=== PATIENT | female | born 1965 | race Caucasian/White ===

== ENCOUNTER 2019-01-08 10:41 | Day surgery (SDC) | payer BC ==
[~2019-01-08 10:41] MED LIST: Midazolam 1 MG/ML 2 ML SDV ONE; Propofol 200 MG/20 ML SDV ONE
[2019-01-08] MEDS ORDERED: Sodium Chloride 0.9% 10 ML Syringe FLUSH PRN (10:45)
[2019-01-08] MEDS ORDERED: Lactated Ringers 1,000 ML IV SCH (10:45)
[2019-01-08] MEDS ORDERED: Propofol 200 MG/20 ML SDV ONE (11:00)
--- NOTE | 2019-01-08 11:40 | PCM.PN ---
- General Info Date of Service: 01/08/19 - Review of Systems Systems Review Comment:: 53-year-old female referred by Dr. Shereen Huynh for colonoscopy. She has a family history of colon cancer in both parents. It is been 5 years since her last colonoscopy. She is medically stable to proceed today. Her recent history and physical is reviewed and no significant changes are noted. I discussed the proposed colonoscopy with the patient. She agrees to proceed accepting risks. - Patient Data Med Orders - Current: Current Medications Lactated Ringer's (Ringers, Lactated) 1,000 mls @ 50 mls/hr IV ASDIRECTED KORY Sodium Chloride (Saline Flush) 10 ml FLUSH Q8HR PRN PRN Reason: keep vein open Discontinued Medications Midazolam HCl (Versed 1 Mg/Ml) Confirm Administered Dose 2 mg .ROUTE .STK-MED ONE Stop: 01/08/19 10:26 Propofol (Diprivan 20 Ml) Confirm Administered Dose 200 mg .ROUTE .STK-MED ONE Stop: 01/08/19 10:26 - Problem List Review Problem List Initiated/Reviewed/Updated: Yes - My Orders Last 24 Hours: My Active Orders 01/08/19 10:45 Peripheral IV Care [RC] . DIRECTED Vital Signs [RC] PER UNIT ROUTINE Lactated Ringers [Ringers, Lactated] 1,000 ml IV ASDIRECTED Sodium Chloride 0.9% [Saline Flush] 10 ml FLUSH Q8HR PRN Peripheral IV Insertion Adult [OM.PC] Routine 01/08/19 11:30 Patient to Empty Bladder [RC] ASDIRECTED 01/08/19 12:00 Verify Patient Consent Obtain [RC] ASDIRECTED 01/08/19 Breakfast Nothing Per Oral Diet [DIET] - Assessment Assessment:: Family history of colon cancer - Plan Plan:: Colonoscopy
[2019-01-08] MEDS ORDERED: Midazolam 1 MG/ML 2 ML SDV IV ONE (11:41)
[2019-01-08] MEDS ORDERED: Propofol 200 MG/20 ML SDV IV ONE (11:41)
--- NOTE | 2019-01-08 12:24 | PCM.OPNOTE ---
- General Post-Op/Procedure Note Date of Surgery/Procedure: 01/08/19 Operative Procedure(s): Colonoscopy Findings: Mild Sigmoid Diverticulosis Moderate External Hemorrhoids Pre Op Diagnosis: Family History of Colon Cancer Post-Op Diagnosis: Diverticulosis. Hemorrhoids Anesthesia Technique: MAC Primary Surgeon: Abram Fuentes Pathology: none EBL in mLs: 0 Complications: None Condition: Good
--- NOTE | 2019-01-08 18:17 | OR ---
DATE OF SURGERY: 01/08/2019 SURGEON: Abram Fuentes MD PREOPERATIVE DIAGNOSIS: Family history of colon cancer. POSTOPERATIVE DIAGNOSIS: Sigmoid diverticulosis and hemorrhoids. OPERATION PERFORMED: Colonoscopy. INDICATIONS FOR SURGERY: This 53-year-old female comes today for screening colonoscopy. She has a known family history of colon cancer in both parents. FINDINGS: No polyps were seen on today's exam. The patient does have a mild to moderate degree of sigmoid diverticulosis. This does not appear to be acutely inflamed or otherwise complicated. She also has small to moderate sized external hemorrhoids. The colon and terminal ileum otherwise appear normal. DESCRIPTION OF PROCEDURE: The patient was taken to the operating room. She was given intravenous sedation and with her in the left lateral decubitus position, digital rectal exam was performed showing no rectal masses. The Olympus colonoscope was inserted into the rectum. Retroflexed examination of the rectal canal was then performed. The scope was then carefully advanced under direct visualization through the entire length of the colon until the cecum was reached. Cecal acquisition was confirmed by noting the normal internal cecal anatomy including the appendiceal orifice and the ileocecal valve. The light was also noted to transilluminate the abdominal wall in the right lower quadrant. The ileocecal valve was cannulated and the terminal ileum examined and it also appeared normal. The scope was then slowly withdrawn sequentially re-examining the colonic segments until the entire colon and rectum had been fully examined. The scope was removed, and the patient was taken from the operating room in satisfactory condition. ESTIMATED BLOOD LOSS: Zero. COMPLICATIONS: None. PROGNOSIS: Good. /[id number]/MODL
== END 2019-01-08 14:00 | disposition home or self-care (01) ==
LOC: KA.SDS 10:41
PROVIDERS: ATTEND Surgery
DX: Z12.11 Encounter for screening for malignant neoplasm of colon (principal); K57.30 Diverticulosis of large intestine without perforation or abscess without bleeding; K64.4 Residual hemorrhoidal skin tags; F41.8 Other specified anxiety disorders; E66.9 Obesity, unspecified; Z68.35 Body mass index [BMI] 35.0-35.9, adult; Z80.0 Family history of malignant neoplasm of digestive organs; Z79.1 Long term (current) use of non-steroidal anti-inflammatories (NSAID); Z79.899 Other long term (current) drug therapy
CPT/HCPCS: J2250; J2704

== ENCOUNTER 2021-01-05 01:52 | Emergency (ER) | payer BC ==
[2021-01-05] MEDS: Sodium Chloride 0.9% 10 ML Syringe FLUSH PRN (02:15)
[2021-01-05] MEDS: Ketorolac 30 MG/ML SDV IVPUSH ONE (02:23)
--- NOTE | 2021-01-05 02:25 | EDM.PDOC ---
ED HPI GENERAL MEDICAL PROBLEM - General Chief Complaint: General Stated Complaint: Left lower back pain Time Seen by Provider: 01/05/21 02:10 Source of Information: Reports: Patient - History of Present Illness INITIAL COMMENTS - FREE TEXT/NARRATIVE: Bekah, 55-year-old female, presents emergency department with sudden onset and extreme left flank pain. She states is all started roughly at 0100 hrs. and has had 3 attempts at urination since then with minimal output. Denies fever chills, denies any urinary symptoms yesterday while at work working in the evening prior to going to bed. She had 1 event similar to this with extreme acuity while at work in the clinic that turned to be a UTI at that time. She has been maintaining good hydration and no activity that would increase risk of either stone nor UTI. 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 Medication(s) (hydrocodone) Left Lower Back Pain Score (Numeric/FACES): 10 - Related Data Allergies Allergy/AdvReac Type Severity Reaction Status Date / Time No Known Drug Allergies Allergy Other Verified 01/06/19 14:57 Home Meds: Home Meds Aspirin [Adult Low Dose Aspirin EC] 81 mg PO DAILY 01/06/19 [History] Multivitamin [Multi-Day Vitamins] 1 each PO DAILY 01/06/19 [History] Naproxen Sodium [Aleve] 220 mg PO QAM 01/06/19 [History] Cetirizine [ZyrTEC] 10 mg PO DAILY PRN 01/05/21 [History] Past Medical History Gastrointestinal History: Reports: Hemorrhoids Genitourinary History: Reports: Other (See Below) (UTI) BROACHER History: Reports: , Other (See Below) Other BROACHER History: hysteremctomy, Psychiatric History: Reports: Anxiety, Depression Endocrine/Metabolic History: Reports: Obesity/BMI 30+ Dermatologic History: Reports: Melanoma - Infectious Disease History Infectious Disease History: Reports: Chicken Pox, Mumps, Shingles - Past Surgical History GI Surgical History: Reports: Cholecystectomy, Colonoscopy Musculoskeletal Surgical History: Reports: Other (See Below) Other Musculoskeletal Surgeries/Procedures:: shoulder surgery Social & Family History - Family History Family Medical History: No Pertinent Family History ED ROS GENERAL - Review of Systems Review Of Systems: Comprehensive ROS is negative, except as noted in HPI. ED EXAM, GENERAL - Physical Exam Exam: See Below Free Text/Narrative:: Alert, oriented and severe pain distress. Prominent pain to the left flank region. HEENT negative discharge or deformity she states she feels slightly dry and thirsty. Neck is soft supple no lymphadenopathy. Thorax is clear I do not appreciate wheezes nor crackles. Cardiac is regular no appreciated murmur. Abdomen is soft with bowel sounds there is no specific point of tenderness, no tenderness on urinary bladder. There is left flank discomfort to palpation and any jarring motion. There is +1 edema of the lower extremities she moves her legs about with no restriction as well as to the upper extremities with no restrictions. Skin is warm and dry. She can find mild comfort in her positioning with pain changing causing motion. Course - Vital Signs Last Recorded V/S: Last Vital Signs Temp 95.6 F L 01/05/21 01:55 Pulse 56 L 01/05/21 03:46 Resp 22 H 01/05/21 01:55 BP 114/70 01/05/21 03:46 Pulse Ox 89 L 01/05/21 03:46 - Orders/Labs/Meds Orders: Active Orders 24 hr Category Date Time Status Peripheral IV Care [RC] . DIRECTED Care 01/05/21 02:08 Active Abdomen Pelvis wo Cont [CT] Stat Exams 01/05/21 02:27 Ordered Sodium Chloride 0.9% [Saline Flush] Med 01/05/21 02:08 Active 10 ml FLUSH Q8HR PRN Peripheral IV Insertion Adult [OM.PC] Routine Oth 01/05/21 02:08 Ordered Medication Orders Sodium Chloride (Sodium Chloride 0.9% 10 Ml Syringe) 10 ml FLUSH Q8HR PRN PRN Reason: keep vein open Last Admin: 01/05/21 02:15 Dose: 10 ml Documented by: SYMONE Labs: Laboratory Tests 01/05/21 01/05/21 01/05/21 Range/Units 02:05 02:05 02:05 WBC 9.04 (5.00-10.00) 10^3/uL RBC 4.67 (3.80-5.50) 10^6/uL Hgb 13.4 (12.0-16.0) g/dL Hct 39.3 (37.0-47.0) % MCV 84.2 (82.0-92.0) fL MCH 28.7 (27.0-31.0) pg MCHC 34.1 (32.0-36.0) g/dL RDW 14.1 (11.5-14.5) % Plt Count 238 (150-400) 10^3/uL MPV 9.5 (7.4-10.4) fL Immature Gran % (Auto) 0.1 (0.0-5.0) % Neut % (Auto) 50.2 (50.0-70.0) % Lymph % (Auto) 38.9 (20.0-40.0) % [place]berry % (Auto) 9.1 H (2.0-8.0) % Eos % (Auto) 1.4 (1.0-3.0) % Baso % (Auto) 0.3 (0.0-1.0) % Neut # (Auto) 4.53 (2.50-7.00) 10^3/uL Lymph # (Auto) 3.52 (1.00-4.00) 10^3/uL Newberry # (Auto) 0.82 H (0.10-0.80) 10^3/uL Eos # (Auto) 0.13 (0.10-0.30) 10^3/uL Baso # (Auto) 0.03 (0.00-0.10) 10^3/uL Immature Gran # (Auto) 0.01 (0.00-0.50) 10^3/uL Sodium 141 (136-145) mmol/L Potassium 3.8 (3.5-5.1) mmol/L Chloride 105 (98-107) mmol/L Carbon Dioxide 25.5 (21.0-32.0) mmol/L Anion Gap 14.3 (5-15) mmol/L BUN 26 H (7-18) mg/dL Creatinine 0.78 (0.51-1.17) mg/dL Est Cr Clr Drug Dosing TNP Estimated GFR (MDRD) > 60 mL/min Glucose 132 (70-140) mg/dL Calcium 8.7 (8.7-10.3) mg/dL Total Bilirubin 0.3 (0.2-1.0) mg/dL AST 11 L (15-37) U/L ALT 31 (14-63) U/L Alkaline Phosphatase 61 (46-116) U/L Total Protein 7.3 (6.4-8.2) g/dL Albumin 3.63 (3.40-5.00) g/dL Specimen Type Urinvoid Urine Color Light yellow (YELLOW) Urine Appearance Clear (CLEAR) Urine pH 5.5 (5.0-9.0) Ur Specific [place] >= 1.030 (1.005-1.030) Urine Protein Negative (NEGATIVE) mg/dL Urine Glucose (UA) Negative (NEGATIVE) mg/dL Urine Ketones Negative (NEGATIVE) mg/dL Urine Occult Blood Moderate H (NEGATIVE) Urine Nitrite Negative (NEGATIVE) Urine Bilirubin Negative (NEGATIVE) Urine Urobilinogen 0.2 (0.2-1.0) E.U./dL Ur Leukocyte Esterase Negative (NEGATIVE) Urine RBC >100 H (0-5) /HPF Urine WBC 5-10 H (0-5) /HPF Ur Epithelial Cells Occasional /LPF Urine Bacteria Occasional (NONE TO FEW) /HPF Urine Mucus Many H (NEGATIVE) /LPF Meds: Medications Generic Name Dose Route Start Last Admin Trade Name Freq PRN Reason Stop Dose Admin Sodium Chloride 10 ml 01/05/21 02:08 01/05/21 02:15 Sodium Chloride 0.9% 10 Ml Syringe FLUSH 10 ml Q8HR PRN Administration keep vein open Discontinued Medications Generic Name Dose Route Start Last Admin Trade Name Freq PRN Reason Stop Dose Admin Hydrocodone Bitart/Acetaminophen 1 tab 01/05/21 04:22 Acetaminophen/Hydrocodone 325-5 Mg Tab PO 01/05/21 04:23 ONETIME ONE Hydromorphone HCl 1 mg 01/05/21 03:14 01/05/21 03:18 Hydromorphone 1 Mg/Ml Syringe IVPUSH 01/05/21 03:15 1 mg ONETIME ONE Administration Sodium Chloride 1,000 mls @ 999 mls/hr 01/05/21 02:08 01/05/21 02:30 Normal Saline IV 01/05/21 03:08 999 mls/hr .BOLUS ONE Administration Ketorolac Tromethamine 30 mg 01/05/21 02:09 01/05/21 02:23 Ketorolac 30 Mg/Ml Sdv IVPUSH 01/05/21 02:10 30 mg ONETIME ONE Administration Ketorolac Tromethamine 30 mg 01/05/21 02:10 01/05/21 02:32 Ketorolac 30 Mg/Ml Sdv IM 01/05/21 02:11 30 mg ONETIME ONE Administration Ondansetron HCl 8 mg 01/05/21 03:58 01/05/21 04:05 Ondansetron 4 Mg/2 Ml Sdv IVPUSH 01/05/21 03:59 8 mg ONETIME ONE Administration Tamsulosin HCl 0.4 mg 01/05/21 04:10 01/05/21 04:15 Tamsulosin 0.4 Mg Cap.Er PO 01/05/21 04:11 0.4 mg ONETIME ONE Administration - Re-Assessments/Exams Free Text/Narrative Re-Assessment/Exam: 01/05/21 02:56 Pain is significantly improved, 1 or 2 on a scale of 10 as she is going for the CT of the abdomen pelvis. 01/05/21 04:05 Pain became significant again and was given 1 mg hydromorphone IV. At this time mild nausea developed with minimal pain. Does not have significant urgency for urine at this time. Advised that we will ambulate in the room and see how she does with consideration for additional fluid and/or discharge home to maintain oral hydration. Free Text/Narrative Re-Assessment/Exam: 01/05/21 04:32 Mild nausea developed but was significantly improved with ondansetron IV. Remains pain-free at this time is anxious to be discharged home where she will maintain fluid hydration. Departure - Departure Time of Disposition: 04:28 Disposition: Home, Self-Care 01 Condition: Good Clinical Impression: Flank pain, acute, Lt flank pain, Hydronephrosis due to obstruction of ureter, Renal lithiasis - Discharge Information *PRESCRIPTION DRUG MONITORING PROGRAM REVIEWED*: Not Applicable *COPY OF PRESCRIPTION DRUG MONITORING REPORT IN PATIENT DAMON: Not Applicable Instructions: Kidney Stones, [id number], Hydronephrosis Referrals: Purnima Ambrosio MD [Primary Care Provider] - Forms: ED Department Discharge Additional Instructions: You have a 3.5 mm stone in the left ureterovesicular junction. This is close to passing into the bladder at this time and secondary the fact you have not had pain now for over an hour since hydromorphone it is possible that it has passed. You will need to strain all of your urine to confirm passing of the stone. When you do passed a stone please place it in the container and bring to the clinic to discuss with your providers if they wish to do a stone analysis on that. Continue all your medications as directed. Increase your fluid intake by at least 24 ounces per day until guaranteed passing of this stone as your urine is slightly concentrated as well as your BUN slightly elevated showing you could use more fluid on a daily basis. Follow-up at the clinic as needed or return to the emergency department if symptoms return and pain is unbearable. Possibility for follow-up with ultrasound may be given in the event that the stone does not pass in the next 24 hours. Sepsis Event Note (ED) - Focused Exam Vital Signs: Vital Signs Temp Pulse Resp BP Pulse Ox 01/05/21 03:46 56 L 114/70 89 L 01/05/21 03:31 56 L 131/76 89 L 01/05/21 03:16 54 L 166/96 H 97 01/05/21 03:09 65 153/93 H 97 01/05/21 02:46 57 L 145/82 H 95 01/05/21 02:31 56 L 153/89 H 97 01/05/21 02:16 55 L 150/83 H 98 01/05/21 02:01 59 L 163/98 H 98 01/05/21 01:55 95.6 F L 57 L 22 H 177/96 H 98 - Problem List & Annotations (1) Flank pain, acute SNOMED Code(s): 752648714, 237489474 Code(s): R10.9 - UNSPECIFIED ABDOMINAL PAIN Status: Acute (2) Lt flank pain SNOMED Code(s): 646447213 Code(s): R10.9 - UNSPECIFIED ABDOMINAL PAIN Status: Acute (3) Renal lithiasis SNOMED Code(s): 96364193 Code(s): N20.0 - CALCULUS OF KIDNEY Status: Acute Priority: High (4) Hydronephrosis due to obstruction of ureter SNOMED Code(s): 793218682 Code(s): N13.1 - HYDRONEPHROSIS W URETERAL STRICTURE, NEC Status: Acute Priority: High - Problem List Review Problem List Initiated/Reviewed/Updated: Yes - My Orders Last 24 Hours: My Active Orders 01/05/21 02:08 Peripheral IV Care [RC] . DIRECTED Sodium Chloride 0.9% [Saline Flush] 10 ml FLUSH Q8HR PRN Peripheral IV Insertion Adult [OM.PC] Routine 01/05/21 02:27 Abdomen Pelvis wo Cont [CT] Stat - Assessment/Plan Last 24 Hours: My Active Orders 01/05/21 02:08 Peripheral IV Care [RC] . DIRECTED Sodium Chloride 0.9% [Saline Flush] 10 ml FLUSH Q8HR PRN Peripheral IV Insertion Adult [OM.PC] Routine 01/05/21 02:27 Abdomen Pelvis wo Cont [CT] Stat Plan: You have a 3.5 mm stone in the left ureterovesicular junction. This is close to passing into the bladder at this time and secondary the fact you have not had pain now for over an hour since hydromorphone it is possible that it has passed. You will need to strain all of your urine to confirm passing of the stone. When you do passed a stone please place it in the container and bring to the clinic to discuss with your providers if they wish to do a stone analysis on that. Continue all your medications as directed. Increase your fluid intake by at least 24 ounces per day until guaranteed passing of this stone as your urine is slightly concentrated as well as your BUN slightly elevated showing you could use more fluid on a daily basis. Follow-up at the clinic as needed or return to the emergency department if sy mptoms return and pain is unbearable. Possibility for follow-up with ultrasound may be given in the event that the stone does not pass in the next 24 hours.
[2021-01-05] MEDS: Sodium Chloride 0.9% 1,000 ML IV ONE (02:30)
[2021-01-05] MEDS: Ketorolac 30 MG/ML SDV IM ONE (02:32)
[2021-01-05 02:45] LABS: ANION GAP 14.3 mmol/L (5-15); CHLORIDE,CL 105 mmol/L (98-107); SODIUM,NA 141 mmol/L (136-145)
[2021-01-05] MEDS: HYDROmorphone 1 MG/ML Syringe IVPUSH ONE (03:18)
[2021-01-05] MEDS: Ondansetron 4 MG/2 ML SDV IVPUSH ONE (04:05)
[2021-01-05] MEDS: Tamsulosin 0.4 MG Cap.ER PO ONE (04:15)
[2021-01-05] MEDS: Acetaminophen/HYDROcodone 325-5 MG Tab PO ONE (04:29)
--- NOTE | 2021-01-05 07:40 | CT ---
[id number] CT/CT Abdomen Pelvis WO IV EXAM: ABDOMEN AND PELVIS CT WITHOUT CONTRAST INDICATION: LEFT FLANK PAIN COMPARISON: None. DISCUSSION: A 3.5 mm distal left ureteral calculus results in mild left hydroureteronephrosis. No other renal/ureteral calculi. 25 mm right and 27 mm left parapelvic renal cysts. Cholecystectomy. Scattered diverticula of the colon without evidence of diverticulitis. Diastases recti. Prior hysterectomy. Unenhanced images of the liver, spleen, pancreas, adrenal glands, small bowel, and the appendix are normal in appearance. No adenopathy, free air free fluid. Grade 1 L4-L5 spondylolisthesis relating to bilateral facet arthropathy. The osseous structures are otherwise unremarkable. IMPRESSION: 1. A 3.5 mm distal left ureteral calculus results in mild left hydroureteronephrosis. Delvin Pisano MD 01/05/21 0739 Thank you for allowing us to participate in the care of your patient.
== END 2021-01-05 04:43 | disposition home or self-care (01) ==
LOC: KA.ED 01:52
DX: N13.2 Hydronephrosis with renal and ureteral calculous obstruction (principal); E66.9 Obesity, unspecified; Z68.42 Body mass index [BMI] 45.0-49.9, adult; Z79.82 Long term (current) use of aspirin
CPT/HCPCS: 36415; 74176; 80053; 81001; 85025; 96372; 96374; 96375; 99284; 99284-25; A9270-GY; J1170; J1885; J2405; J7030

== ENCOUNTER 2023-09-07 10:19 | Emergency (ER) | payer BC ==
[2023-09-07] MEDS ORDERED: Ondansetron 4 MG/2 ML SDV IVPUSH ONE (10:25)
[2023-09-07] MEDS ORDERED: HYDROmorphone 1 MG/ML Syringe IVPUSH ONE (10:25)
[2023-09-07] MEDS ORDERED: Ketorolac 30 MG/ML SDV IVPUSH ONE (10:26)
[2023-09-07] MEDS ORDERED: Sodium Chloride 0.9% 1,000 ML IV ONE (10:26)
[2023-09-07 10:38] LABS: BASOPHILS ABSOLUTE AUTO 0.06 10^3/uL (0.00-0.10); BASOPHILS PERCENT AUTO 0.6 % (0.0-1.0); EOSINOPHILS ABSOLUTE AUTO 0.23 10^3/uL (0.10-0.30); EOSINOPHILS PERCENT AUTO 2.5 % (1.0-3.0); HEMOGLOBIN 13.7 g/dL (12.0-16.0); IMMATURE GRAN ABSOLUTE AUTO 0.02 10^3/uL (0.00-0.50); IMMATURE GRAN PERCENT AUTO 0.2 % (0.0-5.0); LYMPHOCYTES ABSOLUTE AUTO 4.09 10^3/uL (1.00-4.00); LYMPHOCYTES PERCENT AUTO 43.8 % (20.0-40.0); MEAN CORPUSCULAR HEMOGLOBIN 26.7 pg (27.0-31.0); MEAN CORPUSCULAR HGB CONC 32.6 g/dL (32.0-36.0); MEAN CORPUSCULAR VOLUME 81.9 fL (82.0-92.0); MEAN PLATELET VOLUME 9.5 fL (7.4-10.4); MONOCYTES ABSOLUTE AUTO 0.95 10^3/uL (0.10-0.80); MONOCYTES PERCENT AUTO 10.2 % (2.0-8.0); NEUTROPHILS ABSOLUTE AUTO 3.99 10^3/uL (2.50-7.00); NEUTROPHILS PERCENT AUTO 42.7 % (50.0-70.0); PLATELET COUNT,PLT 264 10^3/uL (150-400); RED BLOOD CELL COUNT 5.13 10^6/uL (3.80-5.50); RED CELL DISTRIBUTION WIDTH 14.3 % (11.5-14.5); WHITE BLOOD CELL COUNT,WBC 9.34 10^3/uL (5.00-10.00)
[2023-09-07 10:56] LABS: ALBUMIN 3.66 g/dL (3.40-5.00); ANION GAP 16.5 mmol/L (5-15); BILIRUBIN TOTAL 0.2 mg/dL (0.2-1.0); CALCIUM 9.6 mg/dL (8.7-10.3); CARBON DIOXIDE,CO2 26.8 mmol/L (21.0-32.0); CREATININE 0.58 mg/dL (0.51-1.17); EST CRCL DRUG DOSING (CG) 97.77 mL/min; POTASSIUM,K 4.3 mmol/L (3.5-5.1); PROTEIN TOTAL,TP 7.6 g/dL (6.4-8.2)
[2023-09-07 11:18] LABS: APPEARANCE,URINE SLIGHTLY CLOUDY (CLEAR); BILIRUBIN,URINE NEGATIVE (NEGATIVE); COLOR,URINE DARK YELLOW (YELLOW); GLUCOSE,URINE NEGATIVE (NEGATIVE); KETONES,URINE NEGATIVE (NEGATIVE); LEUKOCYTE ESTERASE,URINE TRACE (NEGATIVE); NITRITE,URINE NEGATIVE (NEGATIVE); OCCULT BLOOD,URINE LARGE (NEGATIVE); PH,URINE 6.5 (5.0-9.0); PROTEIN,URINE TRACE mg/dL (NEGATIVE); UROBILINOGEN,URINE 0.2 E.U./dL (0.2-1.0)
[2023-09-07 11:33] LABS: BACTERIA,URINE RARE /HPF (NONE TO FEW); EPITHELIAL CELLS,URINE RARE /LPF; RBC,URINE >100 /HPF (0-5); WBC,URINE 0-5 /HPF (0-5)
== END 2023-09-07 12:28 | disposition home or self-care (01) ==
LOC: KA.ED 10:19
DX: R10.9 Unspecified abdominal pain (principal); R31.29 Other microscopic hematuria; E66.9 Obesity, unspecified; Z68.41 Body mass index [BMI] 40.0-44.9, adult
CPT/HCPCS: 36415; 74176; 80053; 81001; 85025; 87086; 96374; 96375; 99284; J1170; J1885; J2405; J7030

== ENCOUNTER 2023-09-19 14:20 | Emergency (ER) | payer BC ==
[2023-09-19] MEDS: Ketorolac 30 MG/ML SDV IVPUSH ONE (14:37)
[2023-09-19] MEDS: Sodium Chloride 0.9% 1,000 ML IV ONE (14:37)
[2023-09-19] MEDS: Sodium Chloride 0.9% 10 ML Syringe FLUSH PRN (14:42)
[2023-09-19 14:55] LABS: APPEARANCE,URINE SLIGHTLY CLOUDY (CLEAR); BILIRUBIN,URINE NEGATIVE (NEGATIVE); COLOR,URINE DARK YELLOW (YELLOW); GLUCOSE,URINE NEGATIVE (NEGATIVE); KETONES,URINE NEGATIVE (NEGATIVE); LEUKOCYTE ESTERASE,URINE NEGATIVE (NEGATIVE); NITRITE,URINE NEGATIVE (NEGATIVE); OCCULT BLOOD,URINE LARGE (NEGATIVE); PH,URINE 5.5 (5.0-9.0); PROTEIN,URINE 30 mg/dL (NEGATIVE); UROBILINOGEN,URINE 0.2 E.U./dL (0.2-1.0)
[2023-09-19 14:59] LABS: BACTERIA,URINE RARE /HPF (NONE TO FEW); EPITHELIAL CELLS,URINE RARE /LPF; RBC,URINE >100 /HPF (0-5); WBC,URINE 0-5 /HPF (0-5)
[2023-09-19] MEDS: Tamsulosin 0.4 MG Cap.ER PO ONE (15:50)
== END 2023-09-19 16:05 | disposition home or self-care (01) ==
LOC: KA.ED 14:20
DX: N20.0 Calculus of kidney (principal); N13.30 Unspecified hydronephrosis; R31.29 Other microscopic hematuria; K21.9 Gastro-esophageal reflux disease without esophagitis; E66.9 Obesity, unspecified; Z79.899 Other long term (current) drug therapy; Z87.442 Personal history of urinary calculi; Z68.41 Body mass index [BMI] 40.0-44.9, adult
CPT/HCPCS: 74176; 81001; 96374; 99284; 99284-25; A9270-GY; J1885; J3490; J7030

== ENCOUNTER 2024-02-13 08:38 | Day surgery (SDC) | payer BC ==
[~2024-02-13 08:38] MED LIST changes: -Midazolam 1 MG/ML 2 ML SDV ONE; -Propofol 200 MG/20 ML SDV ONE; +Sodium Chloride 0.9% 10 ML Syringe FLUSH PRN
[2024-02-13] MEDS ORDERED: Sodium Chloride 0.9% 10 ML Syringe FLUSH PRN (08:45)
[2024-02-13] MEDS ORDERED: Midazolam 1 MG/ML 2 ML SDV ONE (09:26)
[2024-02-13] MEDS ORDERED: Propofol 200 MG/20 ML SDV ONE (09:26)
[2024-02-13] MEDS: Lactated Ringers 1,000 ML IV SCH (10:15)
== END 2024-02-13 11:33 ==
LOC: KA.SDS 08:38
PROVIDERS: ATTEND Surgery
DX: Z12.11 Encounter for screening for malignant neoplasm of colon (principal); K57.30 Diverticulosis of large intestine without perforation or abscess without bleeding; Z80.0 Family history of malignant neoplasm of digestive organs; K21.9 Gastro-esophageal reflux disease without esophagitis; F41.8 Other specified anxiety disorders; E66.9 Obesity, unspecified; Z79.899 Other long term (current) drug therapy
CPT/HCPCS: J2250; J2704; J3490; J7120